=== PATIENT | male | born 1990 | race Caucasian/White ===

== ENCOUNTER 2023-08-12 13:33 | Emergency (ER) | payer OTHER ==
[2023-08-12 13:48] VITALS: BP 121/50; PULSE 64; RESP 18; TEMP 97.3; BMI 28.2
== END 2023-08-12 18:54 | disposition home or self-care (01) ==
LOC: JERFT 13:33 → JER 13:33 → JERFT 18:54
DX: S46.011A Strain of muscle(s) and tendon(s) of the rotator cuff of right shoulder, initial encounter (principal); S70.11XA Contusion of right thigh, initial encounter; W20.8XXA Other cause of strike by thrown, projected or falling object, initial encounter
CPT/HCPCS: 73030-TC-RT-FY; 73552-TC-RT-FY; 99283-25